=== PATIENT | male | born 1960 | race Caucasian/White ===

== ENCOUNTER 2023-06-14 19:07 | Emergency (ER) | payer OTHER, BC, SELFPAY ==
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
[2023-06-14 19:19] VITALS: BP 162/92; PULSE 78; RESP 20; TEMP 36.6; O2SAT 97; BMI 44.3
[2023-06-14] MEDS: HYDROcodone-acetaminophen 7.5-325 mg Tablet 1 TAB PO (21:09)
[2023-06-14 21:10] VITALS: BP 149/107; PULSE 71; RESP 20; O2SAT 98
[2023-06-14 21:11] VITALS: BP 149/107; PULSE 66; RESP 20; O2SAT 95
== END 2023-06-14 21:23 | disposition home or self-care (01) ==
PROVIDERS: Emergency Provider Nurse Practitioner Family
DX: S29.012A Strain of muscle and tendon of back wall of thorax, initial encounter (principal); V59.9XXA Occupant (driver) (passenger) of pick-up truck or van injured in unspecified traffic accident, initial encounter
CPT/HCPCS: 71101; 72100; 99284

== ENCOUNTER 2024-04-15 06:00 | Outpatient (RCR) | payer BC, SELFPAY | END 2024-05-14 23:59 | disposition home or self-care (01) | LOC: GPT 06:00 | DX: M51.36 Other intervertebral disc degeneration, lumbar region (principal); M25.512 Pain in left shoulder | CPT/HCPCS: 97110; 97162 ==

== ENCOUNTER 2024-05-15 06:00 | Outpatient (RCR) | payer BC, SELFPAY | END 2024-06-14 23:59 | disposition home or self-care (01) | LOC: GPT 06:00 | DX: M25.511 Pain in right shoulder (principal); M47.896 Other spondylosis, lumbar region | CPT/HCPCS: 97110; 97112; 97140; 97164 ==

== ENCOUNTER 2024-06-15 06:00 | Outpatient (RCR) | payer BC, SELFPAY | END 2024-07-14 23:59 | disposition home or self-care (01) | LOC: GPT 06:00 | DX: M51.36 Other intervertebral disc degeneration, lumbar region (principal); M25.512 Pain in left shoulder | CPT/HCPCS: 97110; 97530 ==